=== PATIENT | female | born 1995 | race Caucasian/White ===

== ENCOUNTER 2017-01-27 04:19 | Inpatient (IN) | payer BC, OTHER ==
--- NOTE | 2017-01-28 11:01 | PR ---
[facility] [address] [facility] [place], [place] [address] Signed PP Progress Notes Datetime Report Generated by CPN: 01/28/2017 11:01 SUBJECTIVE: [id number] Pain: Within normal limits Nausea/Vomiting: Denies Vital Signs: [id number] Vital Signs: Reviewed; Within Normal Limits Notable Details: PP Hgb/Hct = 10.8/30.1 EXAM: [id number] Abdomen/Uterus: Normal Lochia: Normal Extremities: Normal IMPRESSION/PLAN/PROCEDURES: [id number] Impression: Normal progression Plan: Continue present management Procedures: None Progress Notes: Doing well, without complaint Signing Physician: Yi Sanchez MD CC: *Electronically Signed* 01/28/17 1101 YI SANCHEZ MD PATIENT NAME: MATTIE PEDERSEN PROGRESS NOTE DATE OF : [birth year] PHYSICIAN: YI SANCHEZ MD RPT #: [id number] REPORT IS CONFIDENTIAL AND NOT TO BE RELEASED WITHOUT AUTHORIZATION
--- NOTE | 2017-01-29 11:10 | PR ---
[facility] [address] [facility] [place] [address] Signed PP Progress Notes Datetime Report Generated by CPN: 01/29/2017 11:10 SUBJECTIVE: [id number] Pain: Within normal limits Nausea/Vomiting: Denies Vital Signs: [id number] Vital Signs: Reviewed; Within Normal Limits Notable Details: PP Hgb/Hct = 10.8/30.1 EXAM: [id number] Abdomen/Uterus: Normal Lochia: Normal Extremities: Normal IMPRESSION/PLAN/PROCEDURES: [id number] Impression: Normal progression Plan: Discharge Procedures: None Progress Notes: Doing well, ready to go home. Signing Physician: Yi Sanchez MD CC: *Electronically Signed* 01/29/17 1110 YI SANCHEZ MD PATIENT NAME: MATTIE PEDERSEN PROGRESS NOTE DATE OF : 95 PHYSICIAN: YI SANCHEZ MD RPT #: [id number] REPORT IS CONFIDENTIAL AND NOT TO BE RELEASED WITHOUT AUTHORIZATION
== END 2017-01-29 12:05 | disposition home or self-care (01) | DRG 775 ==
LOC: FBCO 04:19 → FBC 05:25
PROVIDERS: ADMIT Obstetrics & Gynecology
PROC: 10907ZC Drainage of Amniotic Fluid, Therapeutic from Products of Conception, Via Natural or Artificial Opening (ICD-10-PCS; principal; 2017-01-27)
PROC: 10E0XZZ Delivery of Products of Conception, External Approach (ICD-10-PCS; 2017-01-27)
PROC: 00HU33Z Insertion of Infusion Device into Spinal Canal, Percutaneous Approach (ICD-10-PCS; 2017-01-27)
PROC: 3E0R3CZ (ICD-10-PCS; 2017-01-27)
PROC: 3E0234Z Introduction of Serum, Toxoid and Vaccine into Muscle, Percutaneous Approach (ICD-10-PCS; 2017-01-29)
DX: O60.14X0 Preterm labor third trimester with preterm delivery third trimester, not applicable or unspecified (principal); Z3A.34 34 weeks gestation of pregnancy; Z37.0 Single live birth; Z23 Encounter for immunization; O99.344 Other mental disorders complicating childbirth; F32.9 Major depressive disorder, single episode, unspecified; O99.02 Anemia complicating childbirth; D64.9 Anemia, unspecified
CPT/HCPCS: 01960; 36415; 59025; 85027; 90707; 99214; J0702; J2540; J2795; J7120

== ENCOUNTER 2019-01-09 06:05 | Inpatient (IN) | payer BC, OTHER ==
[~2019-01-09] VITALS: Ht 160 cm; Wt 67.0 kg
--- NOTE | 2019-01-09 07:24 | PR ---
[facility] [address] [facility] [place] [address] Signed Progress Notes IP Datetime Report Generated by CPN: 01/09/2019 07:24 PROGRESS NOTES: [id number] VITAL SIGNS: [id number] Vital Signs: Reviewed; Within Normal Limits EXAM: [id number] Dilatation: 3.0 Effacement: 50 Station: -2 Uterine Contractions: every 5-7 minutes MEMBRANES: [id number] Membrane Status: Intact ROM Note: AROM with small amount clear fluid Comments: Doing well, will allow up to walk if desires Fetus A: [id number] FHR Baseline: 140 Variability: Moderate 6-25bpm Accelerations: 15X15 Presentation: Vertex Fetus B: [id number] Signing Physician: Yi Sanchez MD Copies: ~ *Electronically Signed* 01/09/19 0724 YI SANCHEZ MD PATIENT NAME: MATTIE PEDERSEN PROGRESS NOTE DATE OF : 95 PHYSICIAN: YI SANCHEZ MD RPT #: [id number] REPORT IS CONFIDENTIAL AND NOT TO BE RELEASED WITHOUT AUTHORIZATION
--- NOTE | 2019-01-09 12:45 | PR ---
[facility] [address] [facility] [place] [address] Signed Progress Notes IP Datetime Report Generated by CPN: 01/09/2019 12:45 PROGRESS NOTES: [id number] Impression: Normal progression of labor Plan: Continue present management VITAL SIGNS: [id number] Vital Signs: Reviewed; Within Normal Limits EXAM: [id number] Dilatation: 6.0 Effacement: 90 Station: -1 Uterine Contractions: every 3 minutes MEMBRANES: [id number] Membrane Status: Intact ROM Note: AROM with small amount clear fluid Comments: Comfortable with Epidural Fetus A: [id number] FHR Baseline: 130 Variability: Moderate 6-25bpm Accelerations: 15X15 Presentation: Vertex Fetus B: [id number] Signing Physician: Yi Sanchez MD Copies: ~ *Electronically Signed* 01/09/19 1245 YI SANCHEZ MD PATIENT NAME: MATTIE PEDERSEN PROGRESS NOTE DATE OF : 95 PHYSICIAN: YI SANCHEZ MD RPT #: [id number] REPORT IS CONFIDENTIAL AND NOT TO BE RELEASED WITHOUT AUTHORIZATION
--- NOTE | 2019-01-10 08:57 | PR ---
[facility] [address] [facility] [place] [address] Signed PP Progress Notes Datetime Report Generated by CPN: 01/10/2019 08:57 SUBJECTIVE: [id number] Pain: Within normal limits Nausea/Vomiting: Denies Vital Signs: [id number] Vital Signs: Reviewed; Within Normal Limits Notable Details: PP Hgb/Hct = 11.1/33.6 EXAM: [id number] Abdomen/Uterus: Normal Lochia: Normal Extremities: Normal IMPRESSION/PLAN/PROCEDURES: [id number] Impression: Normal progression Plan: Discharge Procedures: None Progress Notes: Doing well, without complaint, would like to go home today. Signing Physician: Yi Sanchez MD Copies: ~ *Electronically Signed* 01/10/19 0857 YI SANCHEZ MD PATIENT NAME: MATTIE PEDERSEN PROGRESS NOTE DATE OF : 95 PHYSICIAN: YI SANCHEZ MD RPT #: [id number] REPORT IS CONFIDENTIAL AND NOT TO BE RELEASED WITHOUT AUTHORIZATION
== END 2019-01-10 17:05 | disposition home or self-care (01) | DRG 807 ==
LOC: FBC 06:05
PROVIDERS: ADMIT General Practice
PROC: 10E0XZZ Delivery of Products of Conception, External Approach (ICD-10-PCS; principal; 2019-01-09)
PROC: 0UQMXZZ Repair Vulva, External Approach (ICD-10-PCS; 2019-01-09)
PROC: 10907ZC Drainage of Amniotic Fluid, Therapeutic from Products of Conception, Via Natural or Artificial Opening (ICD-10-PCS; 2019-01-09)
PROC: 00HU33Z Insertion of Infusion Device into Spinal Canal, Percutaneous Approach (ICD-10-PCS; 2019-01-09)
PROC: 3E0R3BZ Introduction of Anesthetic Agent into Spinal Canal, Percutaneous Approach (ICD-10-PCS; 2019-01-09)
DX: O70.0 First degree perineal laceration during delivery (principal); Z37.0 Single live birth; O99.344 Other mental disorders complicating childbirth; F32.9 Major depressive disorder, single episode, unspecified; O99.02 Anemia complicating childbirth; D64.9 Anemia, unspecified; O28.2 Abnormal cytological finding on antenatal screening of mother; Z3A.39 39 weeks gestation of pregnancy
CPT/HCPCS: 01960; 36415; 85027; J2590; J2795; J3010

== ENCOUNTER 2020-04-22 06:12 | Inpatient (IN) | payer BC, OTHER ==
[~2020-04-22] VITALS: Ht 160 cm; Wt 71.2 kg
--- NOTE | 2020-04-22 06:48 | NUR ---
[facility] RAPID COVID TEST DONE PER ORDER. COVID TEST COLLECTED FROM BOTH NARES W/O ISSUE. PT TOLERATED WELL.
--- NOTE | 2020-04-22 10:55 | PR ---
[facility] [address] [facility] [place] [address] Signed Progress Notes IP Datetime Report Generated by CPN: 04/22/2020 10:55 PROGRESS NOTES: [id number] Impression: Normal Progression of Labor Procedures: Artificial ROM Plan: Continue Present Management; Deliver- Section VITAL SIGNS: [id number] Vital Signs: Reviewed; Within Normal Limits EXAM: [id number] Dilatation: 4.0 Effacement: 50 Station: -2 MEMBRANES: [id number] Membranes Status: Ruptured Comments: Tolerating contractions well, will continue monitoring. FETUS A: [id number] FHR Baseline: 120 Variability: Moderate 6-25bpm Accelerations: 15X15 Presentation: Vertex FETUS B: [id number] Signing Physician: Yi Sanchez MD Copies: ~ *Electronically Signed* 04/22/20 1055 YI SANCHEZ MD PATIENT NAME: MATTIE PEDERSEN PROGRESS NOTE DATE OF : 95 PHYSICIAN: YI SANCHEZ MD RPT #: [id number] REPORT IS CONFIDENTIAL AND NOT TO BE RELEASED WITHOUT AUTHORIZATION
--- NOTE | 2020-04-22 13:10 | PR ---
[facility] [address] [facility] [place] [address] Signed Progress Notes IP Datetime Report Generated by CPN: 04/22/2020 13:10 PROGRESS NOTES: [id number] Impression: Normal Progression of Labor Procedures: Artificial ROM Plan: Continue Present Management; Anticipate Vaginal Delivery VITAL SIGNS: [id number] Vital Signs: Reviewed; Within Normal Limits EXAM: [id number] Dilatation: 9.5 Effacement: 100 Station: -1 MEMBRANES: [id number] Membranes Status: Ruptured Comments: Comfortable with Epidural. Expect to start pushing soon. FETUS A: [id number] FHR Baseline: 120 Variability: Moderate 6-25bpm Accelerations: 15X15 Presentation: Vertex FETUS B: [id number] Signing Physician: Yi Sanchez MD Copies: ~ *Electronically Signed* 04/22/20 1310 YI SANCHEZ MD PATIENT NAME: MATTIE PEDERSEN PROGRESS NOTE DATE OF : 95 PHYSICIAN: YI SANCHEZ MD RPT #: [id number] REPORT IS CONFIDENTIAL AND NOT TO BE RELEASED WITHOUT AUTHORIZATION
--- NOTE | 2020-04-23 09:37 | PR ---
[facility] [address] [facility] [place], [place] [address] Signed PP Progress Notes Datetime Report Generated by N: 04/23/2020 09:37 SUBJECTIVE: [id number] Pain: Within Normal Limits Nausea/Vomiting: Denies Vital Signs: [id number] Vital Signs: Reviewed; Within Normal Limits Abdomen/Uterus: Normal Lochia: Normal Extremities: Normal IMPRESSION/PLAN/PROCEDURES: [id number] Impression: Normal Progression Plan: Discharge Procedures: None Progress Notes: Doing well, ready to go home Signing Physician: Yi Sanchez MD Copies: ~ *Electronically Signed* 04/23/2037 YI SANCHEZ MD PATIENT NAME: MATTIE PEDERSEN PROGRESS NOTE DATE OF : 95 PHYSICIAN: YI SANCHEZ MD RPT #: [id number] REPORT IS CONFIDENTIAL AND NOT TO BE RELEASED WITHOUT AUTHORIZATION
== END 2020-04-23 15:50 | disposition home or self-care (01) | DRG 806 ==
LOC: FBC 06:12
PROVIDERS: ADMIT General Practice; ATTEND General Practice
PROC: 10E0XZZ Delivery of Products of Conception, External Approach (ICD-10-PCS; principal; 2020-04-22)
PROC: 10907ZC Drainage of Amniotic Fluid, Therapeutic from Products of Conception, Via Natural or Artificial Opening (ICD-10-PCS; 2020-04-22)
PROC: 3E0P7VZ Introduction of Hormone into Female Reproductive, Via Natural or Artificial Opening (ICD-10-PCS; 2020-04-22)
PROC: 00HU33Z Insertion of Infusion Device into Spinal Canal, Percutaneous Approach (ICD-10-PCS; 2020-04-22)
PROC: 3E0R3BZ Introduction of Anesthetic Agent into Spinal Canal, Percutaneous Approach (ICD-10-PCS; 2020-04-22)
DX: O69.2XX0 Labor and delivery complicated by other cord entanglement, with compression, not applicable or unspecified (principal); O99.324 Drug use complicating childbirth; Z37.0 Single live birth; Z3A.39 39 weeks gestation of pregnancy; O99.02 Anemia complicating childbirth; D64.9 Anemia, unspecified; F12.90 Cannabis use, unspecified, uncomplicated; O99.52 Diseases of the respiratory system complicating childbirth; J45.909 Unspecified asthma, uncomplicated; Z79.899 Other long term (current) drug therapy; Z87.891 Personal history of nicotine dependence
CPT/HCPCS: 01960; 36415; 85027; A9270; C9803; J2590; J2795; J3010; J7121; U0003

== ENCOUNTER 2022-08-10 14:18 | Emergency (ER) | payer OTHER ==
[~2022-08-10] VITALS: Ht 152.4 cm; Wt 46.7 kg
== END 2022-08-10 15:38 | disposition home or self-care (01) ==
LOC: ED 14:18
DX: M79.605 Pain in left leg (principal); Z87.891 Personal history of nicotine dependence
CPT/HCPCS: 99283

== ENCOUNTER 2023-12-19 08:59 | Day surgery (SDC) | payer OTHER ==
[2023-12-18 11:37] VITALS: BP 109/77
[~2023-12-19] VITALS: Ht 160 cm; Wt 45.5 kg
--- NOTE | ~2023-12-19 | OR ---
[facility] [address] [place], [place] [address] Draft DATE OF OPERATION: 12/19/2023 SURGEON: Daryn Fraga DO PREOPERATIVE DIAGNOSIS: Desires salpingectomy. POSTOPERATIVE DIAGNOSIS: Desires salpingectomy. PROCEDURE PERFORMED: Laparoscopic bilateral salpingectomy. ANESTHESIA: General. ESTIMATED BLOOD LOSS: 5 mL. SPECIMENS: Bilateral fallopian tubes. COMPLICATIONS: None. DRAINS: None. FINDINGS: Normal external genitalia with normal clitoris, urethral meatus, bilateral [place]'s, Bartholin's glands. On laparoscopy, normal liver, appendix, uterus, tubes, and ovaries. No evidence of endometriosis or other pelvic pathology. INDICATIONS: Mrs. Samaniego is a very pleasant 28-year-old female, who has completed childbearing. She desires bilateral salpingectomy for both ovarian cancer risk reduction and to avoid additional pregnancies. Risks, benefits, and alternatives were discussed in detail with the patient. The patient understands and wishes to proceed with the procedure. PROCEDURE IN DETAIL: PATIENT NAME: MATTIE SAMANIEGO OPERATIVE REPORT DATE OF : 95 REPORT #: [id number] PHYSICIAN: DARYN FRAGA (ALBAN) PCP: [facility] MD REPORT IS CONFIDENTIAL AND NOT TO BE RELEASED WITHOUT AUTHORIZATION [facility] [address] [place], [place] [address] Draft The patient was taken to the OR. Time-out was performed to confirm correct patient and correct procedure. General anesthesia was adequately established. The patient was prepped and draped in the dorsal lithotomy position under feet in [facility]. ICPs were on and running. No preoperative antibiotics or heparin was indicated. Garnett catheter was inserted. A weighted speculum was placed in vagina and the anterior lip of the cervix was grasped with an Allis clamp. The cervix was gently dilated using Hegar dilators and Hulka uterine manipulator was placed without difficulty. Surgeon's gloves were changed and attention was turned to the abdomen. The base of the umbilicus was infiltrated with 0.25% Marcaine with epinephrine. A 5 mm trocar was placed under direct visualization without complication. Pneumoperitoneum was easily established with low opening pressures. Survey of the abdomen and pelvis was performed demonstrating normal liver, stomach, appendix, uterus, tubes, and ovaries and no evidence of other pelvic pathology. The 5 mm bilingual teacher assistant ports were placed in the left lower and right lower quadrant under direct visualization without complication. Attention was turned to the salpingectomy. The left fallopian tube was grasped at the fimbriated end, elevated and divided along the mesosalpinx to the cornu. Excellent hemostasis was appreciated and the tube was sent to Pathology for further evaluation. The process was repeated on the right without difficulty with complete salpingectomy performed. Excellent hemostasis was again appreciated. Pneumoperitoneum was reduced. Trocars were removed and trocar sites were repaired using 3-0 Vicryl Rapide in a subcuticular stitch. Garnett catheter and Hulka uterine manipulator were removed. The patient was taken to PACU in good and stable condition. Sponge, needle, and instrument counts correct x2 at the end of the procedure. DO TRISTA Wilhelm/MODL /[id number] Copies: ~ PATIENT NAME: MATTIE SAMANIEGO JACQUELINE OPERATIVE REPORT DATE OF : 95 REPORT #: [id number] PHYSICIAN: DARYN FRAGA DO (JD) PCP: S[facility] NIC[facility]LE MD REPORT IS CONFIDENTIAL AND NOT TO BE RELEASED WITHOUT AUTHORIZATION
[~2023-12-19 08:59] MED LIST: AMOX TR-K CLV1 EAC1 PO; IBLOOD GLUCOSE TEST STRIP 1 EA TEST VI PRN; IBU800 MG PO; LACTATED RINGER'S 1,000 ML IV SCH; LIDOCAINE HCL 1% 5 ML SDV INJ ONE
[2023-12-19 09:29] VITALS: BP 112/74
[2023-12-19 09:46] LABS: AMPHETAMINES, URINE NEGATIVE (NEGATIVE); BARBITURATES, URINE NEGATIVE (NEGATIVE); BENZODIAZEPINE, URINE NEGATIVE (NEGATIVE); BUPRENORPHINE, URINE NEGATIVE (NEGATIVE); CANNABINOID, URINE NEGATIVE (NEGATIVE); COCAINE, URINE NEGATIVE (NEGATIVE); ECSTASY, URINE NEGATIVE (NEGATIVE); FENTANYL, URINE NEGATIVE (NEGATIVE); METHADONE, URINE NEGATIVE (NEGATIVE); OPIATES, URINE NEGATIVE (NEGATIVE); OXYCODONE, URINE NEGATIVE (NEGATIVE); PHENCYCLIDINE, URINE NEGATIVE (NEGATIVE)
[2023-12-19] MEDS ORDERED: fentaNYL citrate 100 MCG/2 ML VIAL ONE (11:46)
[2023-12-19] MEDS ORDERED: DEXAMETHASONE SOD PHOS 4 MG/ML VIAL ONE (11:47)
[2023-12-19] MEDS ORDERED: ondansetron HCL 4 MG/2 ML VIAL ONE (11:47)
[2023-12-19] MEDS ORDERED: ACETAMINOPHEN 1,000 MG/100 ML VIAL ONE (11:47)
[2023-12-19] MEDS ORDERED: ROCURONIUM BROMIDE 50 MG/5 ML SYR ONE (11:47)
[2023-12-19] MEDS ORDERED: LIDOCAINE HCL 2% 5 ML SDV ONE (11:47)
[2023-12-19] MEDS ORDERED: KETOROLAC TROMETHAMINE 30 MG/ML VIAL ONE (11:47)
[2023-12-19] MEDS ORDERED: propofoL 200 MG/20 ML VIAL ONE (11:47)
[2023-12-19] MEDS ORDERED: SUGAMMADEX SODIUM 200 MG/2 ML ML ONE (11:55)
[2023-12-19] MEDS ORDERED: NALOXONE HCL 0.4 MG SYR IV PRN ×2 (12:30→14:15)
[2023-12-19] MEDS ORDERED: fentaNYL citrate 50 MCG/ML SDV IV PRN (12:30)
[2023-12-19] MEDS ORDERED: ondansetron HCL 4 MG/2 ML VIAL IV PRN ×2 (12:30→14:15)
[2023-12-19] MEDS ORDERED: IBLOOD GLUCOSE TEST STRIP 1 EA TEST VI PRN (12:30)
[2023-12-19] MEDS ORDERED: droPERidol 5 MG/2 ML VIAL IV PRN (12:30)
--- NOTE | 2023-12-19 13:57 | NUR ---
12/19/23 1357 Naomy,Janene 1346 PT ARRIVED TO PACU ON 6L VIA MASK, PT ASLEEP AND RESP EVEN AND UNLABORED. 1350 PT WAKES TO TACTILE STIMULI AND O2 MASK REMOVED. PT REORIENTED TO PACU AND EASILY FALLS BACK TO SLEEP WITH SMALL AMOUNT OF SNORING NOTED.
[2023-12-19] MEDS ORDERED: METOCLOPRAMIDE HCL 10 MG/2 ML SDV IV PRN (14:15)
[2023-12-19] MEDS ORDERED: FAMOTIDINE 20 MG/ 2 ML VIAL IV PRN (14:15)
[2023-12-19] MEDS ORDERED: PROCHLORPERAZINE EDISYLATE 10 MG/2 ML VIAL IV PRN (14:15)
[2023-12-19] MEDS ORDERED: MORPHINE SULFATE 10 MG/ML VIAL IV PRN (14:15)
[2023-12-19] MEDS ORDERED: OXYCODONE/APAP 5/325 TAB PO PRN (14:15)
[2023-12-19 14:43] VITALS: BP 109/64
--- NOTE | 2023-12-19 14:48 | NUR ---
PATIENT BACK IN DAY SURGERY ROOM FROM PACU. RATES PAIN 2/10. SCANT AMOUNT OF DRAINAGE ON LEFT BANDAID. NO DRAINAGE ON PERIPAD. VS CHECKED. IV SITE WNL. SCDs ON. PATIENT TOLERATING SIPS OF WATER. GIVEN PUDDING TO EAT. CALL LIGHT WITHIN REACH.
--- NOTE | 2023-12-19 15:22 | NUR ---
1515: CHECKED PATIENT. PATIENT SLEEPING. DID NOT DISTURB. CALL LIGHT WITHIN REACH.
[2023-12-19 15:35] VITALS: BP 114/81
--- NOTE | 2023-12-19 16:42 | NUR ---
1535: CHECKED PATIENT. VS CHECKED. TOLERATED SANDWICH. RATES PAIN 1-2/10. SCANT AMOUNT OF DRAINAGE ON LEFT BANDAID. STAND BY ASSIST WHILE PATIENT MOVED TO SIT ON SIDE OF BED. THEN STAND BY ASSIST WHILE PATIENT WALKED TO BATHROOM. 1545: VOID WITHOUT DIFFICULTY APPROXIMATELY 100 ML OF CLEAR URINE. GAIT STEADY BACK TO ROOM. PATIENT GETTING DRESSED. 1610: DISCHARGE INSTRUCTIONS GIVEN TO PATIENT. 1615: IV DC'D WNL. TIP INTACT. DRESSING APPLIED. PATIENT DISCHARGED TO HOME VIA WHEELCHAIR WITH FRIEND.
--- NOTE | 2023-12-19 21:25 | EKG ---
[facility] [address] [facility] [place] [address] Signed Normal sinus rhythm Rightward axis Borderline ECG No previous ECGs available Confirmed by Shyla Chandler MD () on 12/19/2023 9:25:24 PM Electronically Signed By: SHYLA CHANDLER MD 12/19/232124 PATIENT NAME: MATTIE PEDERSEN Electrocardiogram DATE OF : 95 PHYSICIAN: SHYLA CHANDLER MD REPORT #: [id number] REPORT IS CONFIDENTIAL AND NOT TO BE RELEASED WITHOUT AUTHORIZATION
== END 2023-12-19 16:15 | disposition home or self-care (01) ==
LOC: DS 08:59 → OPS 08:59 → DS 10:45 → OPS 10:45
PROVIDERS: Nurse Anesthetist, Certified Registered; ATTEND Obstetrics & Gynecology
PROC: 0UB74ZZ Excision of Bilateral Fallopian Tubes, Percutaneous Endoscopic Approach (ICD-10-PCS; principal; 2023-12-19 10:45)
DX: Z40.02 Encounter for prophylactic removal of ovary(s) (principal); F15.91 Other stimulant use, unspecified, in remission; R30.0 Dysuria; Z87.891 Personal history of nicotine dependence
CPT/HCPCS: 80307; 93005; 93010; J0131; J1100; J1885; J2001; J2405; J2704; J3010; J3490; J7121

== ENCOUNTER 2024-04-05 18:13 | Emergency (ER) | payer OTHER ==
[~2024-04-05] VITALS: Ht 160 cm; Wt 44.5 kg
[~2024-04-05 18:13] MED LIST changes: -IBLOOD GLUCOSE TEST STRIP 1 EA TEST VI PRN; -LACTATED RINGER'S 1,000 ML IV SCH; -LIDOCAINE HCL 1% 5 ML SDV INJ ONE
[2024-04-05 18:45] LABS: BILIRUBIN, URINE NEGATIVE (negative); BLOOD/HGB, URINE LARGE (Negative); KETONE, URINE NEGATIVE (Negative); LEUK ESTERASE, URINE NEGATIVE (negative); NITRITE, URINE NEGATIVE (negative); PH, URINE 5.5 (5-7)
[2024-04-05 18:54] LABS: BACTERIA, URINE NONE SEEN /hpf (negative); CASTS, URINE NONE SEEN \\lpf; COLLECTION TYPE, URINE CLEAN CATCH; CRYSTALS, URINE NONE SEEN (0-1+); EPITHELIAL CELLS, URINE SQUAMOUS 1+ /lpf (0-1+); REFLEX CULTURE, URINE No (No)
[2024-04-05 19:10] LABS: BASOPHILS 0.3 % (0-2); EOSINOPHILS 1.3 % (0-6); HEMATOCRIT 40.5 % (35.0-50.0); HEMOGLOBIN 13.6 g/dL (12.0-18.0); LYMPHOCYTES 9.8 % (24-44); MCH 31.5 (27-36); MCHC 33.5 g/dl (30-36); MCV 93.8 fl (81-99); NEUTROPHILS 80.6 % (39-80); PLATELET COUNT 221 K/uL (140-440); RBC 4.31 M/ul (4.3-5.7); RDW 12.6 (10.5-15.0)
[2024-04-05 19:20] LABS: ALBUMIN 3.5 g/dL (3.4-5.0); ALBUMIN/GLOBULIN RATIO 0.92 (1.1-2.4); ANION GAP 14.9 (7-21); BILIRUBIN, TOTAL 0.1 ng/dL (0.2-1.0); BUN/CREATININE RATIO 15.49 (6.0-28.6); CALCIUM 8.6 mg/dL (8.5-10.1); CREATININE, SERUM 0.71 mg/dL (0.55-1.02); POTASSIUM 3.9 mmol/L (3.5-5.1); PROTEIN, TOTAL 7.3 g/dL (6.4-8.2)
[2024-04-05] MEDS ORDERED: KETOROLAC TROMETHAMINE 30 MG/ML VIAL IV ONE (19:30)
[2024-04-05] MEDS ORDERED: LACTATED RINGER'S 1,000 ML IV ONE (19:30)
[2024-04-05 19:38] LABS: AMPHETAMINES, URINE POSITIVE (NEGATIVE); BARBITURATES, URINE NEGATIVE (NEGATIVE); BENZODIAZEPINE, URINE NEGATIVE (NEGATIVE); BUPRENORPHINE, URINE NEGATIVE (NEGATIVE); CANNABINOID, URINE NEGATIVE (NEGATIVE); COCAINE, URINE NEGATIVE (NEGATIVE); ECSTASY, URINE POSITIVE (NEGATIVE); FENTANYL, URINE NEGATIVE (NEGATIVE); METHADONE, URINE NEGATIVE (NEGATIVE); OPIATES, URINE NEGATIVE (NEGATIVE); OXYCODONE, URINE NEGATIVE (NEGATIVE); PHENCYCLIDINE, URINE NEGATIVE (NEGATIVE)
[2024-04-05 20:23] LABS: INFLUENZA B NAA NEGATIVE (NEGATIVE); RESPIRATORY SYNCYTIAL VIR NAA NEGATIVE (NEGATIVE)
[2024-04-05 21:20] VITALS: BP 131/91
[2024-04-05 21:26] LABS: LACTIC ACID, BLOOD 0.6 mmol/L (0.4-2.0)
== END 2024-04-05 21:20 | disposition home or self-care (01) ==
LOC: ED 18:13
PROVIDERS: Emergency Medicine; Internal Medicine
DX: J10.1 Influenza due to other identified influenza virus with other respiratory manifestations (principal); M54.50 Low back pain, unspecified; Z11.52 Encounter for screening for COVID-19
CPT/HCPCS: 36415; 80053; 80307; 81001; 83605; 83690; 84703; 85025; 87502; 96374; 99284-25; J1885; J7121; U0002

== ENCOUNTER 2024-11-25 21:47 | Emergency (ER) | payer OTHER ==
[~2024-11-25] VITALS: Ht 160 cm; Wt 46.1 kg
[2024-11-25 22:19] LABS: BLOOD/HGB, URINE NEGATIVE (Negative); KETONE, URINE NEGATIVE (Negative); LEUK ESTERASE, URINE NEGATIVE (negative); NITRITE, URINE NEGATIVE (negative)
[2024-11-25 22:36] LABS: BASOPHILS 0.7 % (0.1-1.2); EOSINOPHILS 2.6 % (0.7-5.8); LYMPHOCYTES 49.3 % (19.3-51.7); MCH 30.6 PG (25.6-32.2); MCHC 33.2 g/dL (32.2-35.5); MCV 92.3 fL (79.4-94.8); MONOCYTES 9.7 % (4.7-12.5); NEUTROPHILS 37.5 % (34.0-71.1); RBC 4.02 M/uL (3.93-5.22)
[2024-11-25 22:50] LABS: SOURCE, WET MOUNT VAGINAL
[2024-11-25 22:51] LABS: ALT (SGPT) 65.0 U/L (14-59); AST (SGOT) 58.0 U/L (15-37); GLOMERULAR FILTRATION RATE,EST 109.0 mL/min (>60); PROTEIN, TOTAL 7.2 g/dL (6.4-8.2); UREA NITROGEN 16.0 mg/dL (7-18)
[2024-11-25 22:51] LABS: WBC, WET MOUNT 1+ (NEGATIVE)
[2024-11-25 22:52] LABS: BACTERIA, WET MOUNT 1+ (NEGATIVE); CLUE CELLS, WET MOUNT POSITIVE (NEGATIVE); EPITHELIAL CELLS, WET MOUNT 1+ (NEGATIVE); RBC, WET MOUNT NEGATIVE (NEGATIVE); TRICHOMONAS, WET MOUNT NEGATIVE (NEGATIVE); YEAST, WET MOUNT NEGATIVE (NEGATIVE)
[2024-11-25 22:56] VITALS: BP 132/95
[2024-11-25] MEDS ORDERED: CLEOCIN40 GM VAGINAL (23:09)
[2024-11-25 23:53] LABS: N. GONORRRHOEAE BY PCR NOT DETECTED (NOT DETECT)
== END 2024-11-25 23:16 | disposition home or self-care (01) ==
LOC: ED 21:47
PROVIDERS: Emergency Medicine
DX: N76.0 Acute vaginitis (principal); Z87.891 Personal history of nicotine dependence
CPT/HCPCS: 36415; 80053; 81003; 84703; 85025; 87210; 87491; 99284